=== PATIENT | male | born 1955 | race Caucasian/White ===

== ENCOUNTER 2021-07-02 21:19 | Inpatient (IN) | payer MEDICARE, OTHER ==
[~2021-07-02] VITALS: Ht 185.4 cm; Wt 91.5 kg
[2021-07-02 22:10] LABS: ALBUMIN 1.1 g/dL (3.4-5.0); BUN/CREAT RATIO (CALC) 20.9 RATIO; CREATININE 0.43 mg/dL (0.67-1.17); POTASSIUM 4.7 mmol/L (3.5-5.1); TOTAL PROTEIN 6.1 g/dL (6.4-8.2)
[2021-07-02 22:17] LABS: BASOPHIL 0.2 % (0-2); EOSINOPHIL 1.7 % (0-7); HCT 28.7 % (42.0-52.0); HGB 9.3 g/dl (13.2-18.0); MCHC 32.4 g/dL (32.0-36.0); MONOCYTE 9.2 % (0-12); MPV 10.9 fL (6.0-9.5); NEUTROPHIL 72.3 % (41-80); PLT 107 K/uL (150-400); RBC 4.04 M/uL (4.70-6.00); RDW 17.2 % (11.5-14.0); WBC 16.9 K/uL (4.0-10.5)
[2021-07-02 22:39] LABS: LACTIC ACID 2.5 mmol/L (0.4-1.9)
[2021-07-02 23:06] LABS: INR 2.41 (0.9-1.2); PROTHROMBIN TIME 25.3 SECONDS (11.8-13.4)
[2021-07-03 01:49] LABS: HCT 24.7 % (42.0-52.0)
[2021-07-03 03:42] LABS: BILIRUBIN 1+ mg/dL (NEGATIVE); BLOOD NEGATIVE Ery/uL (NEGATIVE); GLUCOSE (U) 1+ mg/dL (NORMAL); LEUKOCYTES NEGATIVE Leu/uL (NEGATIVE); NITRITE NEGATIVE (NEGATIVE); PROTEIN TRACE (LOW) mg/dL (NEGATIVE); pH 6.5 (5.0-9.0)
[2021-07-03 03:43] LABS: CLARITY SLIGHTLY HAZY (CLEAR); COLOR AMBER (YELLOW)
[2021-07-03 07:37] LABS: BASOPHIL 0.5 % (0-2); HCT 25.2 % (42.0-52.0); HGB 8.1 g/dl (13.2-18.0); LYMPHOCYTE 16.2 % (15-48); MCH 23.2 pg (25.0-31.0); MCHC 32.1 g/dL (32.0-36.0); MCV 72.2 fL (78.0-100.0); MONOCYTE 11.2 % (0-12); NEUTROPHIL 67.3 % (41-80); NRBC 2.4; PLT 99 K/uL (150-400); RBC 3.49 M/uL (4.70-6.00); RDW 17.6 % (11.5-14.0); WBC 17.4 K/uL (4.0-10.5)
[2021-07-03 07:49] LABS: IRON % SATURATION 16.9 %SAT (20-50)
[2021-07-03] MEDS ORDERED: BENADRYL12.5 MG/5 PO (08:55)
[2021-07-03] MEDS ORDERED: NYSTATIN SUSP1 ML/ML SSP (08:56)
[2021-07-03] MEDS ORDERED: LIDOCAINE HCL100 ML SSP (08:56)
--- NOTE | 2021-07-03 10:27 | NUR ---
MET WITH PT, SPOUSE AND SON. THEY ARE REQUESTING [facility]. THEY WILL NEED A HOSPITAL BED AND O2. CONTACTED [facility] [phone]. FAX IS [phone]. FAXED CLINICAL INFO. TO [facility]. WAS ADVISED BY JAIR [facility] WILL CONTACT THE SPOUSE OR SON TO SET UP AN APPT FOR TODAY. THE FAMILY WOULD LIKE TO TAKE PT HOME THIS DATE.
[2021-07-03 11:10] LABS: ALBUMIN 0.9 g/dL (3.4-5.0); BILIRUBIN - TOTAL 0.8 mg/dL (0.2-1.0); BUN/CREAT RATIO (CALC) 26.2 RATIO; CREATININE 0.42 mg/dL (0.67-1.17); FOLIC ACID (SERUM) 4.4 ng/mL (8.6-58.9); GLOBULIN (CALCULATION) 4.7 g/dL; MAGNESIUM 1.6 mg/dL (1.8-2.4); TOTAL PROTEIN 5.6 g/dL (6.4-8.2)
[2021-07-03] MEDS ORDERED: MORPHINE S10 MG/5 M1 PO (12:12)
[2021-07-03] MEDS ORDERED: ATIVAN0.5 MG PO (12:12)
[2021-07-03 14:01] LABS: HGB 7.7 g/dL (13.2-18.0)
--- NOTE | 2021-07-03 14:10 | NUR ---
PT HGB 7.7, NOTIFIED DR MENDOZA NO NEW ORDERS AT THIA TIME PT IS GOING HOME WITH [facility] TODAY
--- NOTE | 2021-07-03 16:44 | NUR ---
[facility], [facility] FLUSHED PORT AND DEACCESSED. PT STABLE AT TIME OF DISCHARGE, BELONGING SENT WITH FAMILY
== END 2021-07-03 16:33 | disposition hospice, home (50) | DRG 871 ==
LOC: FER 21:19 → FICU 07-03 02:44
PROVIDERS: Family Medicine; Internal Medicine; Nurse Practitioner; ADMIT Internal Medicine
DX: A41.9 Sepsis, unspecified organism (principal); J18.9 Pneumonia, unspecified organism; I26.99 Other pulmonary embolism without acute cor pulmonale; J96.01 Acute respiratory failure with hypoxia; C25.9 Malignant neoplasm of pancreas, unspecified; D62 Acute posthemorrhagic anemia; E87.1 Hypo-osmolality and hyponatremia; R04.2 Hemoptysis; C34.90 Malignant neoplasm of unspecified part of unspecified bronchus or lung; C22.8 Malignant neoplasm of liver, primary, unspecified as to type; C79.51 Secondary malignant neoplasm of bone; R65.20 Severe sepsis without septic shock; R04.0 Epistaxis; Z66 Do not resuscitate; Z51.5 Encounter for palliative care; D50.9 Iron deficiency anemia, unspecified; D69.6 Thrombocytopenia, unspecified; I10 Essential (primary) hypertension; E86.0 Dehydration; E11.9 Type 2 diabetes mellitus without complications; Z90.49 Acquired absence of other specified parts of digestive tract; Z90.81 Acquired absence of spleen; Z80.0 Family history of malignant neoplasm of digestive organs; Z80.42 Family history of malignant neoplasm of prostate; Z79.84 Long term (current) use of oral hypoglycemic drugs; Z79.02 Long term (current) use of antithrombotics/antiplatelets; Z79.899 Other long term (current) drug therapy; Z92.21 Personal history of antineoplastic chemotherapy; Z93.3 Colostomy status; Z85.048 Personal history of other malignant neoplasm of rectum, rectosigmoid junction, and anus
CPT/HCPCS: 36415; 36600; 71275; 80053; 81003; 82607; 82728; 82746; 82803; 83036; 83540; 83550; 83605; 83690; 83735; 83880; 84145; 84484; 85014; 85018; 85025; 85610; 85730; 86850; 86900; 86901; 87040; 93005; 93971; J1642; J2543; J7030; J7120; Q9967